=== PATIENT | female | born 1960 | race Two or more races ===

== ENCOUNTER 2018-06-06 09:42 | Outpatient (CLI) | payer OTHER | END 2018-06-06 15:57 | disposition home or self-care (01) | LOC: MAMO-SONO 09:42 | DX: N60.11 Diffuse cystic mastopathy of right breast (principal) ==

== ENCOUNTER 2020-07-25 09:51 | Outpatient (CLI) | payer OTHER | END 2020-07-25 10:04 | disposition home or self-care (01) | LOC: MAMO-SONO 09:51 | PROVIDERS: ATTEND Obstetrics & Gynecology | DX: N60.11 Diffuse cystic mastopathy of right breast (principal) ==

== ENCOUNTER 2020-11-07 12:25 | Outpatient (CLI) | payer OTHER | END 2020-11-07 12:40 | disposition home or self-care (01) | LOC: RAD 12:25 | PROVIDERS: ATTEND Internal Medicine | DX: M25.512 Pain in left shoulder (principal); M25.522 Pain in left elbow ==

== ENCOUNTER 2020-12-05 13:13 | Outpatient (CLI) | payer OTHER | END 2020-12-05 13:15 | disposition home or self-care (01) | LOC: NUCLEAR 13:13 | PROVIDERS: ATTEND Internal Medicine | DX: M81.0 Age-related osteoporosis without current pathological fracture (principal); Z13.820 Encounter for screening for osteoporosis ==

== ENCOUNTER 2021-12-25 04:02 | Emergency (ER) | payer OTHER ==
[~2021-12-25] VITALS: Ht 165.1 cm; Wt 77.1 kg
[2021-12-25] MEDS ORDERED: CRESTOR10 MG PO (04:13)
== END 2021-12-25 10:11 | disposition home or self-care (01) ==
LOC: ER 04:02
DX: R10.31 Right lower quadrant pain (principal); N13.2 Hydronephrosis with renal and ureteral calculous obstruction; Z88.0 Allergy status to penicillin

== ENCOUNTER 2021-12-28 09:16 | Outpatient (CLI) | payer OTHER ==
[~2021-12-28 09:16] MED LIST: CRESTOR10 MG PO
== END 2021-12-28 09:19 | disposition home or self-care (01) ==
LOC: NUCLEAR 09:16
DX: M85.88 Other specified disorders of bone density and structure, other site (principal); Z88.0 Allergy status to penicillin

== ENCOUNTER 2022-09-29 11:00 | Outpatient (CLI) | payer OTHER | END 2022-09-29 11:09 | disposition home or self-care (01) | LOC: MAMO-SONO 11:00 | PROVIDERS: ATTEND Obstetrics & Gynecology | DX: Z12.31 Encounter for screening mammogram for malignant neoplasm of breast (principal); N60.11 Diffuse cystic mastopathy of right breast ==

== ENCOUNTER 2024-01-26 11:06 | Outpatient (CLI) | payer OTHER | END 2024-01-26 11:14 | disposition home or self-care (01) | LOC: MAMO-SONO 11:06 | PROVIDERS: ATTEND Internal Medicine | DX: D64.9 Anemia, unspecified (principal); Z12.31 Encounter for screening mammogram for malignant neoplasm of breast ==